=== PATIENT | female | born 1995 | race Hispanic/Latino ===

== ENCOUNTER 2021-02-24 01:16 | Emergency (ER) | payer SELFPAY | END 2021-02-24 02:12 | disposition home or self-care (01) | LOC: CSHERS 01:16 | DX: O99.511 Diseases of the respiratory system complicating pregnancy, first trimester (principal); J02.9 Acute pharyngitis, unspecified; Z3A.01 Less than 8 weeks gestation of pregnancy | CPT/HCPCS: 96372; 99282 ==